=== PATIENT | male | born 1970 | race African-American/Black ===

== ENCOUNTER 2020-05-06 10:01 | Emergency (ER) | payer MEDICARE, MEDICAID, SELFPAY ==
[2020-05-06 10:48] VITALS: BP 156/96; PULSE 100; RESP 16; TEMP 37.1; O2SAT 98; BMI 37.1
--- NOTE | 2020-05-06 11:06 | XR_ITS ---
EXAMINATION: XR CHEST CLINICAL INFORMATION: Chest pain COMPARISON: None TECHNIQUE: Frontal view of the chest was obtained. FINDINGS: Cardiac and mediastinal silhouette is within normal limits. No focal consolidation. No effusion, edema or pneumothorax. IMPRESSION: No evidence of acute pulmonary process.
--- NOTE | 2020-05-06 11:06 | ECG_ITS ---
Test Reason : CHEST PAIN Blood Pressure : / mmHG Vent. Rate : 093 BPM Atrial Rate : 093 BPM P-R Int : 130 ms QRS Dur : 078 ms QT Int : 318 ms P-R-T Axes : 066 038 019 degrees QTc Int : 395 ms Normal sinus rhythm Normal ECG No previous ECGs available Referred By: Gloria Ortega Electronically Signed By:ALEYDA LITTLE
--- NOTE | 2020-05-06 11:31 | ED.CHESTPAIN ---
HPI - Chest Pain General Chief Complaint: Chest Pain Stated Complaint: CHEST PAIN Time Seen by Provider: 05/06/20 10:55 Source: patient Mode of arrival: ambulatory History of Present Illness HPI narrative: 49-year-old male with a past medical history of hypertension complaining of left-sided chest pain radiating down left upper extremity last night while at rest. Reports residual tingling in left hand. Denies chest pain at present. patient also reports increased stressors at home which may have contributed to pain. Denies SOB, fever, chills, cough, LE edema, history of clots, recent travel, sick contacts Reports with at PCP general appointment and sent to the ED for evaluation MD complaint: chest pain Onset (ago): day(s) Timing of current episode: episodic Prior episodes: No Onset: during rest Pain radiation: left arm Quality: tightness and sharp Exacerbating factors: nothing Related Data Allergies Allergy/AdvReac Type Severity Reaction Status Date / Time No Known Allergies Allergy Verified 05/06/20 10:47 Review of Systems Review of Systems: Yes all other systems are reviewed and are negative Constitutional: Constitutional: Reports as per HPI, Denies chills, Denies fatigue and Denies fever(s) ENT: Reports system reviewed and no additional complaints, except as documented Cardiovascular: Cardiovascular: Reports as per HPI, Reports chest pain, Reports chest pain at rest, Denies leg edema, Denies lightheadedness and Denies dyspnea Respiratory: Respiratory: Denies cough and Denies dyspnea Gastrointestinal: Gastrointestinal: Reports as per HPI, Reports abdominal pain, Denies nausea and Denies vomiting Musculoskeletal: Musculoskeletal: Reports tingling (lue) Neurologic: Reports tingling (lue) Endocrine: Endocrine: Denies fatigue [facility] Past Medical History Attestation statement: The following information was validated with the patient. Medical History Hypertension Hypertension Social History Social History Advance Directives: No Advance Directives Information Provided: Yes Physical Exam Vital Signs and I&O and Narrative: Vital Signs and I&O: Vital Signs Temp 98.8 F 05/06/20 10:48 Pulse 61 05/06/20 14:43 Resp 16 05/06/20 13:46 BP 106/54 L 05/06/20 14:43 Pulse Ox 98 05/06/20 10:48 Intake & Output 05/05/20 05/06/20 05/06/20 18:59 06:59 18:59 Weight 104.326 kg Body Mass Index 37.1 Const: General: cooperative and healthy appearing Orientation/consciousness: patient oriented x3 HENMT: Head: Yes normal to inspection Eyes: General: appearance normal, both eyes and all related structures Chest: Chest palpation & inspection: normal inspection of the chest Resp: Effort & Inspection: normal respiratory effort, able to speak in complete sentences, not labored and no stridor Auscultation: clear to auscultation bilaterally, no crackles, no rales, no rhonchi and no wheezes Cardio: Jugular venous distension: no JVD Rate: regular rate Rhythm: regular rhythm Heart sounds: S1 normal heart sound present and S2 normal heart sound present GI: Inspection: Yes normal to inspection Palpation (GI): Soft to palpation, nontender and no guarding Neuro: General: patient oriented x3 Extrem: Other: no calf tenderness General: No pedal edema Course Course Course Narrative: --1330-- troponin elevated 21.6 >> will obtain 3 hour repeat labs otherwise unremarkable - CXR unremarkable --1541-- repeat troponin 18.4> [place] unlikely lab and imaging results discussed with patient including worrisome signs and symptoms and strict return precautions. Patient verbalized understanding and feel safe for discharge follow-up with PCP /cardiology MDM - Chest Pain MDM Narrative Medical decision making narrative: 49-year-old male with a past medical history of hypertension complaining of left-sided chest pain radiating down left upper extremity last night while at rest. On exam VSS, NAD/ well-appearing. Asymptomatic at present. Lungs CTA. No LE edema or calf tenderness. Concern for anxiety versus ACS. Low concern for infectious etiology including viral syndrome/pneumonia or PE/dissection Plan: Labs, CXR, EKG Differential Diagnosis Differential diagnosis: Likely pneumothorax, unstable angina pectoris, atypical chest pain and chest pain Medical Records Data Attestation: I reviewed the patient's medical records. Lab Data Attestation: I reviewed the patient's lab results. Result diagrams: 05/06/20 11:26 05/06/20 12:47 Labs: Lab Results 05/06/20 05/06/20 05/06/20 Range/Units 11:26 11:26 11:26 WBC 10.6 (4.8-10.8) X10*3/uL RBC 5.94 H (4.60-5.80) X10*6/uL Hgb 16.6 (14.0-18.0) g/dl Hct 51.1 (42-52) % MCV 86.0 (80-98) fL MCH 27.9 (27.0-33.0) pg MCHC 32.5 (31.0-36.0) g/dl RDW 14.7 (11.0-16.0) % Plt Count 335 (160-400) X10*3/uL MPV 9.8 (9.4-12.4) fL Immature Gran % (Auto) 0.4 (0.0-0.4) % Neut % (Auto) 63.3 (45-73) % Lymph % (Auto) 27.4 (20-40) % Elliott % (Auto) 7.3 (2-11) % Eos % (Auto) 1.2 (0-4) % Baso % (Auto) 0.4 (0-2) % Neut # (Auto) 6.7 (2.0-8.3) X10*3/uL Lymph # (Auto) 2.9 (1.2-4.9) X10*3/uL Elliott # (Auto) 0.8 (0.1-1.2) X10*3/uL Eos # (Auto) 0.1 (0.0-0.4) X10*3/uL Baso # (Auto) 0.0 (0.0-0.2) X10*3/uL Abs Immat Gran (auto) 0.04 H (0.00-0.03) X10*3/uL Absolute Nucleated RBC 0.000 (0.0-0.012) X10*3/uL Nucleated RBC % (auto) 0.0 (0.0-0.2) /100WBC Hold Blue Top Cancelled Sodium (135-145) mmol/L Potassium (3.3-5.1) mmol/l Chloride (96-108) mmol/L Carbon Dioxide (22-29) mmol/L Anion Gap (12-20) BUN (9-16) mg/dL Creatinine (0.5-1.4) mg/dL Estim Creat Clear Calc Estimated GFR Random Glucose (60-115) mg/dL Calcium (8.4-10.2) mg/dL Troponin I High Sens 21.6 (<3.5-35.0) ng/L B-Natriuretic Peptide < 10 (<100) pg/mL 05/06/20 05/06/20 Range/Units 12:47 14:09 WBC (4.8-10.8) X10*3/uL RBC (4.60-5.80) X10*6/uL Hgb (14.0-18.0) g/dl Hct (42-52) % MCV (80-98) fL MCH (27.0-33.0) pg MCHC (31.0-36.0) g/dl RDW (11.0-16.0) % Plt Count (160-400) X10*3/uL MPV (9.4-12.4) fL Immature Gran % (Auto) (0.0-0.4) % Neut % (Auto) (45-73) % Lymph % (Auto) (20-40) % Elliott % (Auto) (2-11) % Eos % (Auto) (0-4) % Baso % (Auto) (0-2) % Neut # (Auto) (2.0-8.3) X10*3/uL Lymph # (Auto) (1.2-4.9) X10*3/uL Elliott # (Auto) (0.1-1.2) X10*3/uL Eos # (Auto) (0.0-0.4) X10*3/uL Baso # (Auto) (0.0-0.2) X10*3/uL Abs Immat Gran (auto) (0.00-0.03) X10*3/uL Absolute Nucleated RBC (0.0-0.012) X10*3/uL Nucleated RBC % (auto) (0.0-0.2) /100WBC Hold Blue Top Sodium 137 (135-145) mmol/L Potassium 4.4 (3.3-5.1) mmol/l Chloride 101 (96-108) mmol/L Carbon Dioxide 27 (22-29) mmol/L Anion Gap 13 (12-20) BUN 16 (9-16) mg/dL Creatinine 0.99 (0.5-1.4) mg/dL Estim Creat Clear Calc 103.2 Estimated GFR > 60 Random Glucose 102 (60-115) mg/dL Calcium 9.9 (8.4-10.2) mg/dL Troponin I High Sens 18.4 (<3.5-35.0) ng/L B-Natriuretic Peptide (<100) pg/mL Discharge Plan Discharge Clinical Impression: Atypical chest pain Patient Disposition: Home, Self-Care Instructions: Chest Pain (ED) Additional Instructions: your blood work and chest x-ray were reassuring today in the ED You need to establish care with a construction flagger You also should follow up with her primary care doctor If your symptoms recur, persist, worsen, your shortness of breath, fever, cough, swelling in her legs return to the ED Referrals: Rigo Bull MD [Physician] - 2 days Physician,Unknown [Primary Care Provider] - 2 days Print Language: Kyrgyz
[2020-05-06 11:36] LABS: MANUAL DIFF FLAG NO
[2020-05-06 11:39] LABS: Basophils Percent Auto 0.4 % (0-2); Eosinophils Absolute Auto 0.1 X10*3/uL (0.0-0.4); Eosinophils Percent Auto 1.2 % (0-4); Hematocrit 51.1 % (42-52); Hemoglobin 16.6 g/dl (14.0-18.0); Imm Gran Abs Auto 0.04 X10*3/uL (0.00-0.03); Imm Gran Pct Auto 0.4 % (0.0-0.4); Lymphocytes Absolute Auto 2.9 X10*3/uL (1.2-4.9); Lymphocytes Percent Auto 27.4 % (20-40); Mean Corpuscular HGB Conc 32.5 g/dl (31.0-36.0); Mean Corpuscular Hemoglobin 27.9 pg (27.0-33.0); Mean Platelet Volume 9.8 fL (9.4-12.4); Monocytes Absolute Auto 0.8 X10*3/uL (0.1-1.2); Monocytes Percent Auto 7.3 % (2-11); Neutrophils Absolute Auto 6.7 X10*3/uL (2.0-8.3); Neutrophils Percent Auto 63.3 % (45-73); Platelet Count 335 X10*3/uL (160-400); Red Blood Count 5.94 X10*6/uL (4.60-5.80); Red Cell Distribution Width 14.7 % (11.0-16.0); White Blood Count 10.6 X10*3/uL (4.8-10.8)
[2020-05-06 12:14] LABS: B Type Natriuretic Peptide < 10 pg/mL (<100); Troponin-I High Sensitivity 21.6 ng/L (<3.5-35.0)
[2020-05-06 13:28] LABS: Anion Gap 13 (12-20); Blood Urea Nitrogen 16 mg/dL (9-16); Calcium 9.9 mg/dL (8.4-10.2); Carbon Dioxide 27 mmol/L (22-29); Chloride 101 mmol/L (96-108); Creatinine Clr Calc Pharmacy 103.2; Estimated Glomerular Filt Rate > 60; Glucose Random 102 mg/dL (60-115); Potassium 4.4 mmol/l (3.3-5.1); Sodium 137 mmol/L (135-145)
[2020-05-06 13:46] VITALS: BP 156/94; PULSE 85; RESP 16
[2020-05-06] MEDS: Ketorolac Tromethamine 15 MG/ML VIAL IV (14:21)
--- NOTE | 2020-05-06 14:22 | PC.NURSE ---
REPEAT TROP DRAWN. MEDICATED WITH TORADOL FOR CHRONIC BACK PAIN.
[2020-05-06 14:24] VITALS: BP 141/96; PULSE 81
[2020-05-06 14:43] VITALS: BP 106/54; PULSE 61
[2020-05-06 15:07] LABS: Troponin-I High Sensitivity 18.4 ng/L (<3.5-35.0)
== END 2020-05-06 16:01 | disposition home or self-care (01) ==
PROVIDERS: Physician Assistant; Emergency Provider Emergency Medicine
DX: R07.89 Other chest pain (principal); M79.602 Pain in left arm; I10 Essential (primary) hypertension; Z79.899 Other long term (current) drug therapy
CPT/HCPCS: 36415; 71045; 80048; 83880; 84484; 85025; 93005; 93010; 96374; 99284; J1885

== ENCOUNTER → 2020-05-15 09:46 | Outpatient (BNVA) | payer MEDICARE, SELFPAY | PROVIDERS: Visit Provider Nurse Practitioner Family | DX: R07.9 Chest pain, unspecified (principal); I10 Essential (primary) hypertension; Z79.899 Other long term (current) drug therapy; F17.200 Nicotine dependence, unspecified, uncomplicated; Z71.6 Tobacco abuse counseling | CPT/HCPCS: 99203 ==

== ENCOUNTER 2020-05-27 10:16 | Outpatient (REF) | payer MEDICARE, SELFPAY | END 2020-05-27 10:17 | disposition home or self-care (01) | LOC: HO.LAB 10:16 | PROVIDERS: Visit Provider Internal Medicine | DX: Z20.828 Contact with and (suspected) exposure to other viral communicable diseases (principal) | CPT/HCPCS: 87635 ==

== ENCOUNTER → 2020-08-15 10:40 | Outpatient (REF) | payer MEDICARE, SELFPAY ==
--- NOTE | 2020-08-15 10:51 | CA_ITS ---
Acquisition Time: 2020-08-15 11:53:54 Total Exercise Time: 00:05:28 Test Indications: Chest Pain Medications: AMLODIPINE ATORVASTATIN CITALOPRAM HCTZ LISINOPRIL OMEPRAZOLE TRAZADONE TRAMADOL Protocol: RAJ Max HR: 153 BPM 88% of Pred: 172 BPM Max BP: 160/090 mmHG Max Work Load: 7.0 METS Exercise stress test using Raj protocol, total of 5 min 28 sec. METS 7.0, TAPHR up to 88 %. Pt denies any anginal sx. EKG with isolated PVC. No ischemic changes seen during exercise or in recovery. Normotensive response to exertcise. Test reviewed with Dr. Bull. Referred By: Aury Hinson Overread By: Bhumi Barraza
--- NOTE | 2020-08-15 11:03 | CA_ITS ---
Transthoracic Echocardiogram Patient (Last, First, Middle): Fly Beal, Gender: Male Date of : 1970 Age: 49 Procedure Date: 08/15/2020 Procedure Type: Transthoracic Echocardiogram Location: OP Height: 177.8 cm Weight: 90.72 kg BSA: 2.09 m2 Heart Rate: bpm BP: 154 / 64 mmHg Dye Room Helper: ESTELLE Etienne MD: Aury MARQUEZ Moisture Machine Tender: Rigo Bull MD Symptoms: CP Study Quality: Good ECG Rhythm: Sinus Conclusions: - Normal study Findings Left Ventricle Normal left ventricular size, thickness, and systolic function. The visually estimated ejection fraction is between 60-65%. Diastolic function is normal for age. Right Ventricle Normal right ventricular cavity size and systolic function. Atria Both atria are normal in size. There is lipomatous hypertrophy of the interatrial septum. There is no evidence of interatrial shunt. Aortic Valve Normal aortic valve structure and function. There is no aortic valve stenosis. There is no aortic valve regurgitation. Mitral Valve Normal mitral valve structure and function. There is trace mitral valve regurgitation. There is no mitral valve stenosis. Pulmonic Valve The pulmonic valve is likely normal. Tricuspid Valve Normal tricuspid valve structure. There is trace tricuspid valve regurgitation. The right ventricular systolic pressure is normal. The right ventricular systolic pressure is 17 mmHg. There is no evidence of pulmonary hypertension. Great Vessels All visible segments of the aorta are normal in size. The pulmonary artery was not well visualized. Venous The inferior vena cava is normal in size and collapses greater than 50% with inspiration. Pericardium/Pleural There is no evidence of pericardial effusion. Prior Study Comparison No prior study available for comparison. Measurements 2D Linear Measurements IVSd: 1.15 0.6-0.9/0.6-1.0 cm LVIDd: 4.48 3.9-5.3/4.2-5.9 cm LVIDd Index: 2.14 2.4-3.2/2.2-3.1 cm/m2 LVIDs: 2.93 2.0-3.6 cm LVPWd: 1.10 0.7-1.1 cm Ao Root: 3.60 2.1-3.5 cm LA Diam: 3.20 2.7-3.8/3.0-4.0 cm LAIDs Index: 1.53 1.5-2.3 cm/m2 LV Mass: 223.50 67-162/88-224 g LV Mass Index: 106.94 43-95/49-115 g/m2 LVOT Diam: 2.40 3.0+(-)1.3 cm 2D Systolic Function EF 4C: 55.10 >55% EF 2C: 63.30 >55% EF BiP: 59.70 >55% Mitral Valve MV Pk E: 0.66 MV PK A: 0.59 MV Decel Time: 209.00 E/A: 1.10 E'Lateral: 5.87 E'Medial: 6.09 E/E' Med: 10.90 E/E' Lat: 11.30 PHT: 61.00 MVA PHT: 3.61 Decel [place]: 3.16 Aortic Valve AoV Pk Jamal: 1.09 AoV Mn Jamal: 0.78 AoV VTI: 0.18 AoV Pk Grad: 5.00 Aov Mn Grad: 3.00 LIGIA Cont.VTI: 3.83 LVOT LVOT Pk Jamal: 0.85 LVOT Mn Jamal: 0.56 LVOT VTI: 0.15 LVOT Pk Grad: 3.00 LVOT Mn Grad: 1.00 LVOT Diam: 2.40 LVOT Area: 4.52 Diastolic Function MV Pk E: 0.66 MV Pk A: 0.59 E/A: 1.10 E'Medial: 6.09 E/E' Med: 10.90 E' Laterial: 5.87 E/E' Lat: 11.30 Tricuspid Valve TR Pk Jamal: 1.85 TR Pk Grad: 14.00 RA Press: 3.00 RVSP: 17.00 Great Vessels Aorta Ao Root-2D: 3.60 2.0-3.7 cm Ao Asc: 3.10 2.1-3.4 cm Ao Arch: 3.10 Updated in Other Vendor System with Status of Final Rigo Bull MD electronically signed on 08/15/2020 3:29:50 PM with status of Final
== END ==
LOC: HO.CARD 10:40
PROVIDERS: Visit Provider Nurse Practitioner Family
DX: R07.9 Chest pain, unspecified (principal); F17.200 Nicotine dependence, unspecified, uncomplicated
CPT/HCPCS: 93017; 93306

== ENCOUNTER → 2020-08-26 11:36 | Outpatient (BNVA) | payer MEDICARE, SELFPAY | PROVIDERS: PCP Registered Nurse; Visit Provider Nurse Practitioner Family | DX: R07.2 Precordial pain (principal); I10 Essential (primary) hypertension; F17.200 Nicotine dependence, unspecified, uncomplicated | CPT/HCPCS: 99212 ==

== ENCOUNTER 2020-11-10 09:07 | Outpatient (REF) | payer MEDICARE, SELFPAY | END 2020-11-10 09:08 | disposition home or self-care (01) | LOC: HO.LAB 09:07 | PROVIDERS: Visit Provider Internal Medicine | DX: Z20.822 Contact with and (suspected) exposure to COVID-19 (principal) | CPT/HCPCS: C9803; U0003; U0005 ==

== ENCOUNTER 2021-11-30 16:22 | Emergency (ER) | payer OTHER, SELFPAY ==
--- NOTE | ~2021-11-30 | XR_ITS ---
EXAMINATION: PORTABLE CHEST 1 VIEW CLINICAL INFORMATION: CP . COMPARISON: . TECHNIQUE: Portable frontal view of the chest was obtained. FINDINGS: The lungs are well expanded. No focal infiltrate, effusion, edema, or pneumothorax. Cardiac and mediastinal silhouettes are within normal limits for technique. No acute bony abnormality seen. XR/XR chest 1V IMPRESSION: No evidence of acute disease.
--- NOTE | 2021-11-30 09:36 | ECG_ITS ---
Test Reason : chest pain Blood Pressure : / mmHG Vent. Rate : 085 BPM Atrial Rate : 085 BPM P-R Int : 134 ms QRS Dur : 078 ms QT Int : 336 ms P-R-T Axes : 055 058 -39 degrees QTc Int : 399 ms Normal sinus rhythm T wave abnormality, consider inferolateral ischemia Abnormal ECG When compared with ECG of 06-MAY-2020 10:08, T wave inversion now evident in Inferior leads Referred By: Alessandro Sam Electronically Signed By:JON CALL MD
[2021-11-30 16:49] VITALS: BP 143/85; PULSE 74; RESP 16; TEMP 36.1; O2SAT 99; BMI 28.7
--- NOTE | 2021-11-30 16:52 | ECG_ITS ---
Test Reason : nstemi Blood Pressure : / mmHG Vent. Rate : 083 BPM Atrial Rate : 083 BPM P-R Int : 138 ms QRS Dur : 080 ms QT Int : 338 ms P-R-T Axes : 055 047 -33 degrees QTc Int : 397 ms Normal sinus rhythm T wave abnormality, consider inferior ischemia Abnormal ECG When compared with ECG of 30-NOV-2021 16:28, No significant change was found Referred By: Generic ED Physician Electronically Signed By:JON CALL MD
[2021-11-30 17:00] LABS: MANUAL DIFF FLAG NO
[2021-11-30 17:04] LABS: Basophils Absolute Auto 0.1 X10*3/uL (0.0-0.2); Basophils Percent Auto 0.5 % (0-2); Eosinophils Absolute Auto 0.2 X10*3/uL (0.0-0.4); Eosinophils Percent Auto 2.4 % (0-4); Hematocrit 49.4 % (42.0-52.0); Hemoglobin 15.9 g/dl (14.0-18.0); Imm Gran Abs Auto 0.04 X10*3/uL (0.00-0.03); Imm Gran Pct Auto 0.4 % (0.0-0.4); Lymphocytes Absolute Auto 3.2 X10*3/uL (1.2-4.9); Lymphocytes Percent Auto 32.5 % (20-40); Mean Corpuscular HGB Conc 32.2 g/dl (31.0-36.0); Mean Corpuscular Hemoglobin 27.7 pg (27.0-33.0); Mean Corpuscular Volume 86.2 fL (80.0-98.0); Mean Platelet Volume 9.3 fL (9.4-12.4); Monocytes Absolute Auto 0.6 X10*3/uL (0.1-1.2); Monocytes Percent Auto 5.9 % (2-11); Neutrophils Absolute Auto 5.8 x10*3/uL (2.0-8.3); Neutrophils Percent Auto 58.3 % (45-73); Platelet Count 332 X10*3/uL (160-400); Red Blood Count 5.73 X10*6/uL (4.60-5.80); Red Cell Distribution Width 14.6 % (11.0-16.0); White Blood Count 9.9 X10*3/uL (4.8-10.8)
[2021-11-30 17:16] LABS: Anion Gap 12 (12-20); Blood Urea Nitrogen 11 mg/dL (9-16); Calcium 9.6 mg/dL (8.4-10.2); Carbon Dioxide 25 mmol/L (22-29); Chloride 104 mmol/L (96-108); Creatinine Clr Calc Pharmacy 92.6; Estimated Glomerular Filt Rate > 60; Glucose Random 115 mg/dL (60-115); Potassium 4.2 mmol/L (3.3-5.1); Sodium 137 mmol/L (135-145)
[2021-11-30 17:25] LABS: Troponin-I High Sensitivity 202.1 ng/L (<3.5-35.0)
--- NOTE | 2021-11-30 17:36 | ED_ITS ---
HPI - Chest Pain General Chief Complaint: Chest Pain Stated Complaint: shoulder pain/chest pain Time Seen by Provider: 11/30/21 17:26 Source: patient Limitations: language barrier (Hospital roller setter used) History of Present Illness HPI narrative: This is a 51-year-old male with a history of hypertension and elevated cholesterol who complains of chest pain radiating to his left arm off and on for a few days. The pain has been worse today and more constant. Denies any sweats or nausea or shortness of breath. He is a smoker. His sister has some heart condition. Patient denies any prior heart attacks. Pain is moderately severe, dull, not worse with exertion Related Data Home Medications Medication Instructions Recorded Confirmed amlodipine 10 mg tablet 10 mg PO DAILY 05/15/20 08/26/20 atorvastatin 80 mg tablet 80 mg PO DAILY 05/15/20 08/26/20 citalopram 20 mg tablet 20 mg PO DAILY 05/15/20 08/26/20 hydrochlorothiazide 25 mg tablet 25 mg PO DAILY 05/15/20 08/26/20 lisinopril 10 mg tablet 10 mg PO DAILY 05/15/20 08/26/20 omeprazole 20 mg capsule,delayed 20 mg PO DAILY 05/15/20 08/26/20 release tramadol 50 mg tablet 0 mg PO 05/15/20 08/26/20 trazodone 100 mg tablet 100 mg PO BEDTIME 05/15/20 08/26/20 aspirin 81 mg tablet,delayed 81 mg PO DAILY 08/26/20 08/26/20 release Allergies Allergy/AdvReac Type Severity Reaction Status Date / Time No Known Allergies Allergy Verified 05/06/20 10:47 Review of Systems Review of Systems: Yes all other systems are reviewed and are negative Constitutional: Constitutional: Reports as per HPI and Denies fever(s) Eyes: Eyes: Reports as per HPI and Reports no additional eye complaints ENT: Reports system reviewed and no additional complaints, except as documented, Reports as per HPI, Denies nasal congestion, Denies nasal discharge and Denies sore throat Cardiovascular: Cardiovascular: Reports as per HPI, Denies chest pain and Denies dyspnea Respiratory: Respiratory: Reports as per HPI, Denies cough and Denies dyspnea Gastrointestinal: Gastrointestinal: Reports as per HPI, Denies abdominal pain, Denies diarrhea and Denies vomiting Genitourinary: Genitourinary: Reports as per HPI, Denies hematuria, Denies dysuria and Denies urinary frequency Musculoskeletal: Musculoskeletal: Reports no additional musculoskeletal complaints and Denies numbness Integumentary/Breasts: Skin/Breast: Reports as per HPI and Denies rash Neurologic: Reports as per HPI, Denies focal weakness and Denies numbness Psychiatric: Psychiatric: Reports no additional psychiatric complaints and Reports as per HPI Endocrine: Endocrine: Reports no additional endocrine complaints and Reports as per HPI Hematologic/Lymphatic: Hematologic/Lymphatic: Reports no additional hematologic/lymphatic complaints, Reports as per HPI and Reports other (No pe ripheral edema) [facility] Past Medical History Medical History Arthritis Chest pain Hypertension Hypertension Smoking Family History Family History Mother Arrhythmia Maternal Uncle Cardiac disease Social History Social History Advance Directives: No Advance Directives Information Provided: No Physical Exam Vital Signs: Vital Signs: Last Vital Signs Temp 97 F 11/30/21 16:49 Pulse 78 11/30/21 18:31 Resp 16 11/30/21 16:49 BP 163/89 H 11/30/21 18:31 Pulse Ox 99 11/30/21 16:49 BMI result Body Mass Index 28.7 Const: Other: PERRLA Conj [place] Mucous membranes moist Throat clear Neck supple Lungs CTA Heart RRR no murmurs rubs or gallops Abs soft, non tender, non distended Extremities no pitting edema Neuro alert and oriented x 3, non focal Course Course Course Narrative: Patient with stuttering chest pain, more constant today, was a 10/10 upon my initial evaluation. Patient had an EKG which showed findings consistent with ischemia, with inferolateral T-wave inversion. No STEMI. Patient's troponin was around 200. Repeat EKG was done after the patient had been brought back from the waiting room and showed no change from the initial. Patient was started on medicines for NSTEMI including aspirin, Plavix, heparin, nitroglycerin sublingual x3, which brought the pain down to about a 3 to 4/10. The patient was subsequently placed on nitroglycerin drip. I initially spoke with Dr. Parra of Cardiology at [facility], who wanted to know how the patient responded to the nitroglycerin to no the bed type he would need it they state. The patient was treated with nitroglycerin and still had 3/10 pain on nitroglycerin drip. A subsequently spoke with Dr. Patrick again, who stated the patient would need CCU admission, and I then spoke with Dr. Jorge of Cardiology at [facility] to accept the patient for transfer. Patient's COVID test is negative. Critical care time for this life-threatening illness exclusive of all other billable procedures was approximately 45 minutes including initial evaluation of the patient, ordering tests, x-ray interpretation, EKG interpretation, medical consultation, documentation, reevaluation. MDM - Chest Pain Lab Data Attestation: I reviewed the patient's lab results. Result diagrams: 11/30/21 16:57 11/30/21 16:57 Labs: Lab Results 11/30/21 11/30/21 11/30/21 Range/Units 16:57 16:57 16:57 WBC 9.9 (4.8-10.8) X10*3/uL RBC 5.73 (4.60-5.80) X10*6/uL Hgb 15.9 (14.0-18.0) g/dl Hct 49.4 (42.0-52.0) % MCV 86.2 (80.0-98.0) fL MCH 27.7 (27.0-33.0) pg MCHC 32.2 (31.0-36.0) g/dl RDW 14.6 (11.0-16.0) % Plt Count 332 (160-400) X10*3/uL MPV 9.3 L (9.4-12.4) fL Immature Gran % (Auto) 0.4 (0.0-0.4) % Neut % (Auto) 58.3 (45-73) % Lymph % (Auto) 32.5 (20-40) % [place] % (Auto) 5.9 (2-11) % Eos % (Auto) 2.4 (0-4) % Baso % (Auto) 0.5 (0-2) % Lymph # (Auto) 3.2 (1.2-4.9) X10*3/uL [place] # (Auto) 0.6 (0.1-1.2) X10*3/uL Eos # (Auto) 0.2 (0.0-0.4) X10*3/uL Baso # (Auto) 0.1 (0.0-0.2) X10*3/uL Abs Immat Gran (auto) 0.04 H (0.00-0.03) X10*3/uL Absolute Neuts (auto) 5.8 (2.0-8.3) x10*3/uL Absolute Nucleated RBC 0.000 (0.0-0.012) X10*3/uL Nucleated RBC % (auto) 0.0 (0.0-0.2) /100WBC PT (9.9-13.0) SEC INR (0.9-1.1) Sodium 137 (135-145) mmol/L Potassium 4.2 (3.3-5.1) mmol/L Chloride 104 (96-108) mmol/L Carbon Dioxide 25 (22-29) mmol/L Anion Gap 12 (12-20) BUN 11 (9-16) mg/dL Creatinine 1.08 (0.5-1.4) mg/dL Estim Creat Clear Calc 92.6 Estimated GFR > 60 Random Glucose 115 (60-115) mg/dL Calcium 9.6 (8.4-10.2) mg/dL Troponin I High Sens 202.1 H* (<3.5-35.0) ng/L COVID-19 (REHAN) (Negative) COVID-19 Clin Com 11/30/21 11/30/21 Range/Units 18:55 18:55 WBC (4.8-10.8) X10*3/uL RBC (4.60-5.80) X10*6/uL Hgb (14.0-18.0) g/dl Hct (42.0-52.0) % MCV (80.0-98.0) fL MCH (27.0-33.0) pg MCHC (31.0-36.0) g/dl RDW (11.0-16.0) % Plt Count (160-400) X10*3/uL MPV (9.4-12.4) fL Immature Gran % (Auto) (0.0-0.4) % Neut % (Auto) (45-73) % Lymph % (Auto) (20-40) % [place] % (Auto) (2-11) % Eos % (Auto) (0-4) % Baso % (Auto) (0-2) % Lymph # (Auto) (1.2-4.9) X10*3/uL [place] # (Auto) (0.1-1.2) X10*3/uL Eos # (Auto) (0.0-0.4) X10*3/uL Baso # (Auto) (0.0-0.2) X10*3/uL Abs Immat Gran (auto) (0.00-0.03) X10*3/uL Absolute Neuts (auto) (2.0-8.3) x10*3/uL Absolute Nucleated RBC (0.0-0.012) X10*3/uL Nucleated RBC % (auto) (0.0-0.2) /100WBC PT 11.5 (9.9-13.0) SEC INR 1.0 (0.9-1.1) Sodium (135-145) mmol/L Potassium (3.3-5.1) mmol/L Chloride (96-108) mmol/L Carbon Dioxide (22-29) mmol/L Anion Gap (12-20) BUN (9-16) mg/dL Creatinine (0.5-1.4) mg/dL Estim Creat Clear Calc Estimated GFR Random Glucose (60-115) mg/dL Calcium (8.4-10.2) mg/dL Troponin I High Sens (<3.5-35.0) ng/L COVID-19 (REHAN) Negative (Negative) COVID-19 Clin Com See Note ECG Data ECG #1: ECG interpretation date: 11/30/21 ECG interpretation time: 16:40 Ischemic changes: acute NSTEMI Interpretation: Sinus rhythm with a rate of 85. T-wave inversion in leads V5 and V6, 2 3 in AVF. ECG #2: ECG interpretation date: 11/30/21 ECG interpretation time: 17:52 Interpretation: Sinus rhythm with a rate of 83. T-wave inversions in leads V5 and V6 as well as 2 3 in AVF consistent with inferolateral ischemia, unchanged from prior. No edmund ST elevation. Discharge Plan Discharge Clinical Impression: Chest pain, Acute non-ST elevation myocardial infarction (NSTEMI) Patient Disposition: Xfer Acute Care Hospital Transfer Details: [facility] CCU Prescriptions: No Action amlodipine 10 mg tablet 10 mg PO DAILY 0RF atorvastatin 80 mg tablet 80 mg PO DAILY 0RF citalopram 20 mg tablet 20 mg PO DAILY 0RF hydrochlorothiazide 25 mg tablet 25 mg PO DAILY 0RF tramadol 50 mg tablet 0 mg PO 0RF trazodone 100 mg tablet 100 mg PO BEDTIME 0RF omeprazole 20 mg capsule,delayed release(DR/EC) 20 mg PO DAILY 0RF lisinopril 10 mg tablet 10 mg PO DAILY 0RF aspirin 81 mg tablet,delayed release (DR/EC) 81 mg PO DAILY 0RF
[2021-11-30] MEDS: Aspirin 81 MG TAB.CHEW 324 MG PO (17:47)
--- NOTE | 2021-11-30 17:48 | PC.NURSE ---
DR MARI REQUEST CALL OUT TO [facility] PT TX LINE [phone] @ THIS TIME [place] ANSWER, TAKES PT INFO AND STATES SHE WILL PAGE A RECOIL SPRING WINDER TO CALL US BACK
[2021-11-30] MEDS: Clopidogrel Bisulfate 300 MG TABLET 600 MG PO (17:49)
[2021-11-30] MEDS: Heparin Sodium,Porcine 5,000 UNIT/ML VIAL 5000 UNIT IVPUSH (17:49)
[2021-11-30] MEDS: Metoprolol Tartrate 25 MG TABLET PO (17:49)
[2021-11-30] MEDS: 0.9 % Sodium Chloride 500 ML 999 ML IV (17:51)
--- NOTE | 2021-11-30 17:58 | PC.NURSE ---
DARWIN FROM THE [facility] PT TX LINE CALLS BACK @ THIS TIME ANDASKS TO SPEAK WITH DR JACEY MARI TAKES OVER CALL RIGHT AWAY
[2021-11-30 18:04] VITALS: BP 158/88; PULSE 89
[2021-11-30] MEDS: Nitroglycerin 0.4 MG TAB.SUBL SUBLINGUAL ×3 (18:04→18:31)
[2021-11-30 18:13] VITALS: BP 159/89; PULSE 76
[2021-11-30 18:31] VITALS: BP 163/89; PULSE 78
[2021-11-30] MEDS: Nitroglycerin/D5W 100 MG/250 ML INFUS..BTL IVCONT (18:53)
--- NOTE | 2021-11-30 18:57 | PC.NURSE ---
RETURN CALL @ THIS TIME FROM [facility] PT TRANSFER LINE ASKING TO SPEAK WITH DR JACEY MARI TAKES OVER CALL RIGHT AWAY
[2021-11-30 19:09] LABS: Prothrombin Time 11.5 SEC (9.9-13.0)
[2021-11-30 19:15] LABS: COVID-19 Test Negative (Negative); IDNOW Serial# 16C4AD1C
--- NOTE | 2021-11-30 19:21 | PC.NURSE ---
ALDO FROM PT PLACEMENT CALLS WITH ROOM ASSIGNMENT [employer] 3 BED 22 RN TO RN SHOULD BE CALLED TO: [phone] DR BUSTAMANTE ACCEPTING MD
--- NOTE | 2021-11-30 19:29 | ECG_ITS ---
Test Reason : chest pain Blood Pressure : / mmHG Vent. Rate : 062 BPM Atrial Rate : 062 BPM P-R Int : 142 ms QRS Dur : 080 ms QT Int : 364 ms P-R-T Axes : 047 022 000 degrees QTc Int : 369 ms Normal sinus rhythm Nonspecific T wave abnormality Abnormal ECG When compared with ECG of 30-NOV-2021 17:45, T wave inversion no longer evident in Inferior leads Referred By: Alessandro Sam Electronically Signed By:JON CALL MD
[2021-11-30 19:57] VITALS: BP 142/79; PULSE 61; RESP 16; O2SAT 97
[2021-11-30 20:15] VITALS: BP 148/82; PULSE 69; RESP 18; O2SAT 97
== END 2021-11-30 20:27 | disposition short-term general hospital (02) ==
PROVIDERS: Emergency Provider Emergency Medicine
DX: I21.4 Non-ST elevation (NSTEMI) myocardial infarction (principal); R07.89 Other chest pain; M79.602 Pain in left arm; Z20.822 Contact with and (suspected) exposure to COVID-19; Z79.899 Other long term (current) drug therapy
CPT/HCPCS: 36415; 71045; 80048; 84484; 85025; 85610; 87635; 93005; 96365; 96366; 99285